=== PATIENT | male | born 1955 | race African-American/Black ===

== ENCOUNTER 2019-02-05 07:32 | Day surgery (SDC) | payer OTHER ==
[2019-02-03 14:04] LABS: Absolute Lymphocytes (CBC) 1.6 K/uL (0.7-4.9); Basophils % 0.6 % (0-1.3); Eosinophils % 5.9 % (0-4.4); Hematocrit 43.2 % (39.6-49.0); Lymphocytes % 23.6 % (15.3-44.8); Monocytes % 8.6 % (3.3-12.3); RBC Red Blood Cell Count 5.21 M/uL (4.33-5.43)
--- NOTE | 2019-02-03 14:08 | RAD REPORT ---
EXAM DESCRIPTION: Mya Maravilla And Kenny (2 Views)02/03/2019 1:35 pm CLINICAL HISTORY: Preop for aortogram with runoff COMPARISON: 2017 FINDINGS: The lungs appear clear of acute infiltrate. The heart is mildly enlarged. Postsurgical changes involve the chest. IMPRESSION: No acute abnormalities displayed
[2019-02-03 14:23] LABS: BUN Blood Urea Nitrogen 16 mg/dL (7-18); Bicarbonate 26 mmol/L (21-32); Glucose Level 162 mg/dL (74-106); Potassium 4.2 mmol/L (3.5-5.1); Sodium Level 138 mmol/L (136-145)
[2019-02-03 17:03] LABS: Protime INR 1.03
--- OUTSIDE RECORDS SUMMARY | 2019-02-05 07:35 | XMS REPORT | Clinical Summary ---
:1955 Author Organization [facility] Address [address] [place] [address] Care Team Providers Name Role Phone Black Montero Primary Care Provider Thien Marshall Unavailable Allergies No Known Allergies Medications Medication Sig Dispensed Refills Start Date End Date Status clopidogrel (PLAVIX) Take 75 mg by 0 Active 75 mg mouth daily. tabletIndications: acute coronary syndrome aspirin 81 MG EC Take 81 mg by 0 Active tablet mouth daily. metoprolol Take 50 mg by 0 Active (LOPRESSOR) 50 MG mouth 2 (two) tabletIndications: times daily. acute coronary syndrome metFORMIN Take 1,000 mg by 0 Active (GLUCOPHAGE) 1000 MG mouth 2 (two) tabletIndications: times daily with type 2 diabetes breakfast and mellitus dinner. canagliflozin Take 100 mg by 0 Active (INVOKANA) 100 mg mouth daily. tablet glipiZIDE (GLUCOTROL Take 2.5 mg by 0 Active XL) 2.5 MG 24 hr mouth 2 (two) tablet times daily. acetaminophen-codeine Take 1 tablet by 30 tablet 0 05/16/2017 Active (TYLENOL #3) 300-30 mouth every 6 mg per tablet (six) hours as needed. Max Daily Amount: 4 tablets atorvastatin Take 1 tablet 30 tablet 0 05/16/2017 05/16/2018 (LIPITOR) 80 MG (80 mg total) by tablet mouth nightly. Active Problems Problem Noted Date Acute blood loss as cause of postoperative anemia 05/10/2017 Acute pulmonary insufficiency following thoracic surgery 05/10/2017 Shock circulatory 05/10/2017 Coronary artery disease 05/09/2017 SIRS (systemic inflammatory response syndrome) 05/09/2017 Social History Tobacco Use Types Packs/Day Years Used Date Never Assessed Sex Assigned at Date Recorded Not on file Job Start Date Occupation Industry Not on file Not on file Not on file Travel History Travel Start Travel End No recent travel history available. Last Filed Vital Signs Not on file Plan of Treatment Not on file Implants Implanted Type Area Community Engagement Leader Device Shelf Model / Identifier Expiration Serial / Date Lot Sut Surg Stl 7 18g 18in Mls Mp [id number] - Sx [place]/Arthroscop N/A: J &J: ETHICON 01/25/2022 [id number] / Implanted: Qty: 6 on 05/09/2017 by Gómez Monteiro MD y Sternum X / [id number] Sternal Zipfix Ndl Strl ..20s - Sna Cardiovascular N/A: SYNTHES: SYNTHE 02/25/2022.001.20S / Implanted: Qty: 1 on 05/09/2017 by Gómez Monteiro MD Sternum S [facility] NA / [id number] Results Not on fileafter 02/04/2018 Insurance Payer Benefit Plan / Group Subscriber ID Type Phone Address [employer] - [employer] HMO POS QPOS xxxxxxxxx HMO/POS (Home) [address] [place] [id number] Advance Directives For more information, please contact:[address] [phone] Code Status Date Activated Date Inactivated Comments Full Code 05/09/2017 7:56 PM 05/16/2017 7:28 PM This code status was determined by: Patient
--- OUTSIDE RECORDS SUMMARY | 2019-02-05 07:37 | XMS REPORT ---
:1955 Author Organization [facility] Address [address] [place] [address] Care Team Providers Name Role Phone AUREA HENLEY Unavailable Unavailable Problems This patient has no known problems. Allergies, Adverse Reactions, Alerts This patient has no known allergies or adverse reactions. Medications This patient has no known medications. Results Test Description Test Time Test Comments Text Results Atomic Results Result Comments POCT-GLUCOSE METER 2017-05-16 11:40:00 Test Item Value Reference Range Comments POC-GLUCOSE METER (BEAKER) (test 170 mg/dL 70-110 TESTED AT [facility] [address] [facility] kzun=[id number]) [facility] [address] CBC W/PLT COUNT & AUTO [id number] 10:01:00 Test Item Value Reference Range Comments WHITE BLOOD CELL COUNT (BEAKER) (test qwvd=813) 11.1 K/ L 3.5-10.5 RED BLOOD CELL COUNT (BEAKER) (test jmct=730) 3.71 M/ L 4.63-6.08 HEMOGLOBIN (BEAKER) (test qgmu=174) 10.5 GM/DL 13.7-17.5 HEMATOCRIT (BEAKER) (test ybld=778) 31.8 % 40.1-51.0 MEAN CORPUSCULAR VOLUME (BEAKER) (test szzj=346) 85.7 fL 79.0-92.2 MEAN CORPUSCULAR HEMOGLOBIN (BEAKER) (test 28.3 pg 25.7-32.2 hzcg=836) MEAN CORPUSCULAR HEMOGLOBIN CONC (BEAKER) (test 33.0 GM/DL 32.3-36.5 amfs=438) RED CELL DISTRIBUTION WIDTH (BEAKER) (test 15.4 % 11.6-14.4 nerm=330) PLATELET COUNT (BEAKER) (test lvcy=218) 351 K/CU MM 150-450 MEAN PLATELET VOLUME (BEAKER) (test tzna=540) 10.9 fL 9.4-12.4 NUCLEATED RED BLOOD CELLS (BEAKER) (test 1 /100 WBC 0-0 ypvg=858) NEUTROPHILS RELATIVE PERCENT (BEAKER) (test 73 % gawz=229) LYMPHOCYTES RELATIVE PERCENT (BEAKER) (test 17 % tjst=560) MONOCYTES RELATIVE PERCENT (BEAKER) (test 8 % xanv=785) EOSINOPHILS RELATIVE PERCENT (BEAKER) (test 1 % kpjk=740) BASOPHILS RELATIVE PERCENT (BEAKER) (test 0 % ubqb=021) NEUTROPHILS ABSOLUTE COUNT (BEAKER) (test 8.06 K/ L 1.78-5.38 rnuu=713) LYMPHOCYTES ABSOLUTE COUNT (BEAKER) (test 1.90 K/ L 1.32-3.57 dqyx=802) MONOCYTES ABSOLUTE COUNT (BEAKER) (test 0.89 K/ L 0.30-0.82 isfc=853) EOSINOPHILS ABSOLUTE COUNT (BEAKER) (test 0.10 K/ L 0.04-0.54 iaqg=183) BASOPHILS ABSOLUTE COUNT (BEAKER) (test 0.03 K/ L 0.01-0.08 hxxi=103) IMMATURE GRANULOCYTES-RELATIVE PERCENT (BEAKER) 1 % 0-1 (test yxpp=1818) (MANUAL DIFFERENTIAL)2017-05-16 10:01:00 Test Item Value Reference Range Comments TOTAL COUNTED (BEAKER) (test sgpf=1222) POCT-GLUCOSE [id number] 07:06:00 Test Item Value Reference Range Comments POC-GLUCOSE METER (BEAKER) 222 mg/dL 70-110 TESTED AT [address] (test pful=6569) [facility] [address] BASIC METABOLIC [id number] 05:44:00 Test Item Value Reference Range Comments SODIUM (BEAKER) (test 140 meq/L 136-145 hurf=493) POTASSIUM (BEAKER) (test 3.6 meq/L 3.5-5.1 kini=689) CHLORIDE (BEAKER) (test 104 meq/L 98-107 jqxt=421) CO2 (BEAKER) (test 26 meq/L 22-29 izgz=627) BLOOD UREA NITROGEN 11 mg/dL 7-21 (BEAKER) (test dblc=579) CREATININE (BEAKER) (test 0.67 mg/dL 0.57-1.25 wicr=305) GLUCOSE RANDOM (BEAKER) 123 mg/dL 70-105 (test duxr=468) CALCIUM (BEAKER) (test 8.9 mg/dL 8.4-10.2 kuxr=188) EGFR (BEAKER) (test 145 mL/min/1.73 sq m ESTIMATED GFR IS NOT ayww=5791) ACCURATE CREATININE CLEARANCE IN PREDICTING GLOMERULAR FILTRATION RATE. ESTIMATED GFR IS NOT APPLICABLE FOR DIALYSIS PATIENTS. POCT-GLUCOSE [id number] 21:00:00 Test Item Value Reference Range Comments POC-GLUCOSE METER (BEAKER) 169 mg/dL 70-110 TESTED AT [address] (test ebns=5652) [place] [id number] POCT-GLUCOSE [id number] 17:49:00 Test Item Value Reference Range Comments POC-GLUCOSE METER (BEAKER) 207 mg/dL 70-110 TESTED AT [address] (test ltww=1696) [place] [id number] POCT-GLUCOSE [id number] 13:46:00 Test Item Value Reference Range Comments POC-GLUCOSE METER (BEAKER) 182 mg/dL 70-110 TESTED AT [address] (test rvvp=0226) [place] [id number] POCT-GLUCOSE [id number] 07:45:00 Test Item Value Reference Range Comments POC-GLUCOSE METER (BEAKER) 133 mg/dL 70-110 TESTED AT [address] (test tceb=3783) [facility] [address] BASIC METABOLIC [id number] 05:26:00 Test Item Value Reference Range Comments SODIUM (BEAKER) (test 140 meq/L 136-145 dbyz=457) POTASSIUM (BEAKER) (test 3.3 meq/L 3.5-5.1 qmds=295) CHLORIDE (BEAKER) (test 106 meq/L 98-107 pjad=483) CO2 (BEAKER) (test 25 meq/L 22-29 qxhc=020) BLOOD UREA NITROGEN 12 mg/dL 7-21 (BEAKER) (test bypb=445) CREATININE (BEAKER) (test 0.67 mg/dL 0.57-1.25 ucbc=050) GLUCOSE RANDOM (BEAKER) 129 mg/dL 70-105 (test sdar=975) CALCIUM (BEAKER) (test 8.6 mg/dL 8.4-10.2 qsds=590) EGFR (BEAKER) (test 145 mL/min/1.73 sq m ESTIMATED GFR IS NOT thvt=4051) ACCURATE CREATININE CLEARANCE IN PREDICTING GLOMERULAR FILTRATION RATE. ESTIMATED GFR IS NOT APPLICABLE FOR DIALYSIS PATIENTS. CBC W/PLT COUNT & AUTO [id number] 05:07:00 Test Item Value Reference Range Comments WHITE BLOOD CELL COUNT (BEAKER) (test ehlm=919) 10.2 K/ L 3.5-10.5 RED BLOOD CELL COUNT (BEAKER) (test pfuv=154) 3.35 M/ L 4.63-6.08 HEMOGLOBIN (BEAKER) (test ccyw=656) 9.5 GM/DL 13.7-17.5 HEMATOCRIT (BEAKER) (test ctuc=681) 28.5 % 40.1-51.0 MEAN CORPUSCULAR VOLUME (BEAKER) (test qldo=506) 85.1 fL 79.0-92.2 MEAN CORPUSCULAR HEMOGLOBIN (BEAKER) (test 28.4 pg 25.7-32.2 wird=488) MEAN CORPUSCULAR HEMOGLOBIN CONC (BEAKER) (test 33.3 GM/DL 32.3-36.5 leld=551) RED CELL DISTRIBUTION WIDTH (BEAKER) (test 15.2 % 11.6-14.4 jlgx=842) PLATELET COUNT (BEAKER) (test xcqj=047) 270 K/CU MM 150-450 MEAN PLATELET VOLUME (BEAKER) (test rfrs=246) 10.8 fL 9.4-12.4 NUCLEATED RED BLOOD CELLS (BEAKER) (test 0 /100 WBC 0-0 hzro=543) NEUTROPHILS RELATIVE PERCENT (BEAKER) (test 69 % unzz=526) LYMPHOCYTES RELATIVE PERCENT (BEAKER) (test 20 % cbkr=299) MONOCYTES RELATIVE PERCENT (BEAKER) (test 9 % woxd=999) EOSINOPHILS RELATIVE PERCENT (BEAKER) (test 1 % vbni=449) BASOPHILS RELATIVE PERCENT (BEAKER) (test 0 % fhge=028) NEUTROPHILS ABSOLUTE COUNT (BEAKER) (test 7.03 K/ L 1.78-5.38 nybr=320) LYMPHOCYTES ABSOLUTE COUNT (BEAKER) (test 2.06 K/ L 1.32-3.57 ygfn=636) MONOCYTES ABSOLUTE COUNT (BEAKER) (test 0.87 K/ L 0.30-0.82 ubef=152) EOSINOPHILS ABSOLUTE COUNT (BEAKER) (test 0.10 K/ L 0.04-0.54 xewe=340) BASOPHILS ABSOLUTE COUNT (BEAKER) (test 0.02 K/ L 0.01-0.08 jubk=297) IMMATURE GRANULOCYTES-RELATIVE PERCENT (BEAKER) 1 % 0-1 (test zurx=7467) POCT-GLUCOSE [id number] 21:19:00 Test Item Value Reference Range Comments POC-GLUCOSE METER (BEAKER) 190 mg/dL 70-110 TESTED AT [address] (test fwcw=2938) [place] [id number] POCT-GLUCOSE [id number] 12:12:00 Test Item Value Reference Range Comments POC-GLUCOSE METER (BEAKER) 205 mg/dL 70-110 TESTED AT [address] (test ruxd=5440) [place] [id number] POCT-GLUCOSE [id number] 08:17:00 Test Item Value Reference Range Comments POC-GLUCOSE METER (BEAKER) 169 mg/dL 70-110 TESTED AT [address] (test pbyq=9536) [facility] [address] BASIC METABOLIC [id number] 06:03:00 Test Item Value Reference Range Comments SODIUM (BEAKER) (test 140 meq/L 136-145 xwlo=697) POTASSIUM (BEAKER) (test 3.0 meq/L 3.5-5.1 tqti=484) CHLORIDE (BEAKER) (test 106 meq/L 98-107 nats=117) CO2 (BEAKER) (test 25 meq/L 22-29 zanc=508) BLOOD UREA NITROGEN 16 mg/dL 7-21 (BEAKER) (test avbd=041) CREATININE (BEAKER) (test 0.71 mg/dL 0.57-1.25 qbkl=688) GLUCOSE RANDOM (BEAKER) 246 mg/dL 70-105 (test mdkz=767) CALCIUM (BEAKER) (test 8.6 mg/dL 8.4-10.2 xliy=979) EGFR (BEAKER) (test 136 mL/min/1.73 sq m ESTIMATED GFR IS NOT xerx=8312) ACCURATE CREATININE CLEARANCE IN PREDICTING GLOMERULAR FILTRATION RATE. ESTIMATED GFR IS NOT APPLICABLE FOR DIALYSIS PATIENTS. CBC W/PLT COUNT & AUTO [id number] 05:43:00 Test Item Value Reference Range Comments WHITE BLOOD CELL COUNT (BEAKER) (test euoy=285) 10.1 K/ L 3.5-10.5 RED BLOOD CELL COUNT (BEAKER) (test yman=235) 3.61 M/ L 4.63-6.08 HEMOGLOBIN (BEAKER) (test ukvg=820) 10.1 GM/DL 13.7-17.5 HEMATOCRIT (BEAKER) (test zyry=225) 30.4 % 40.1-51.0 MEAN CORPUSCULAR VOLUME (BEAKER) (test vouc=869) 84.2 fL 79.0-92.2 MEAN CORPUSCULAR HEMOGLOBIN (BEAKER) (test 28.0 pg 25.7-32.2 tmbn=778) MEAN CORPUSCULAR HEMOGLOBIN CONC (BEAKER) (test 33.2 GM/DL 32.3-36.5 ayjy=243) RED CELL DISTRIBUTION WIDTH (BEAKER) (test 15.1 % 11.6-14.4 caxt=446) PLATELET COUNT (BEAKER) (test lllk=520) 287 K/CU MM 150-450 MEAN PLATELET VOLUME (BEAKER) (test fnmx=379) 11.4 fL 9.4-12.4 NUCLEATED RED BLOOD CELLS (BEAKER) (test 0 /100 WBC 0-0 rvvx=109) NEUTROPHILS RELATIVE PERCENT (BEAKER) (test 73 % swwe=938) LYMPHOCYTES RELATIVE PERCENT (BEAKER) (test 16 % hszz=336) MONOCYTES RELATIVE PERCENT (BEAKER) (test 10 % uzoi=472) EOSINOPHILS RELATIVE PERCENT (BEAKER) (test 1 % aely=474) BASOPHILS RELATIVE PERCENT (BEAKER) (test 0 % zkqu=462) NEUTROPHILS ABSOLUTE COUNT (BEAKER) (test 7.39 K/ L 1.78-5.38 kbao=711) LYMPHOCYTES ABSOLUTE COUNT (BEAKER) (test 1.57 K/ L 1.32-3.57 jnah=969) MONOCYTES ABSOLUTE COUNT (BEAKER) (test 1.02 K/ L 0.30-0.82 pvxv=021) EOSINOPHILS ABSOLUTE COUNT (BEAKER) (test 0.07 K/ L 0.04-0.54 kevl=776) BASOPHILS ABSOLUTE COUNT (BEAKER) (test 0.03 K/ L 0.01-0.08 ocjc=135) IMMATURE GRANULOCYTES-RELATIVE PERCENT (BEAKER) 1 % 0-1 (test qmyq=5766) POCT-GLUCOSE [id number] 21:35:00 Test Item Value Reference Range Comments POC-GLUCOSE METER (BEAKER) 189 mg/dL 70-110 TESTED AT [address] (test tzhh=5065) [place] [address] POCT-GLUCOSE [id number] 18:09:00 Test Item Value Reference Range Comments POC-GLUCOSE METER (BEAKER) 201 mg/dL 70-110 TESTED AT [address] (test oqbd=6442) [place] [address] RAD, CHEST, 1 VIEW, NON [id number] 14:44:00Reason for exam:->pl effusionShould this be performed at the bedside?->YesFINAL REPORT AP chest. HISTORY: Pleural effusion COMPARISON: 05/12/2017 IMPRESSION:Cardiomegaly unchanged. Left thoracostomy tube removed. No pneumothorax. Perihilar atelectasis noted. No significant edema. Signed: Tiffanie Macias MDReport Verified Date/Time: 05/13/2017 14:44:21 Reading Location: [facility] Reading Room POCT-GLUCOSE [id number] 13:30:00 Test Item Value Reference Range Comments POC-GLUCOSE METER (BEAKER) 195 mg/dL 70-110 TESTED AT [address] (test wfbx=2399) [place] [id number] POCT-GLUCOSE [id number] 08:36:00 Test Item Value Reference Range Comments POC-GLUCOSE METER (BEAKER) 157 mg/dL 70-110 TESTED AT [address] (test mkue=8690) [place] [address] BASIC METABOLIC [id number] 07:24:00 Test Item Value Reference Range Comments SODIUM (BEAKER) (test 141 meq/L 136-145 scbc=904) POTASSIUM (BEAKER) (test 3.5 meq/L 3.5-5.1 bwet=560) CHLORIDE (BEAKER) (test 107 meq/L 98-107 lgew=691) CO2 (BEAKER) (test 24 meq/L 22-29 hvdj=045) BLOOD UREA NITROGEN 16 mg/dL 7-21 (BEAKER) (test cnla=790) CREATININE (BEAKER) (test 0.70 mg/dL 0.57-1.25 eybp=984) GLUCOSE RANDOM (BEAKER) 145 mg/dL 70-105 (test capv=364) CALCIUM (BEAKER) (test 8.8 mg/dL 8.4-10.2 qfyw=509) EGFR (BEAKER) (test 138 mL/min/1.73 sq m ESTIMATED GFR IS NOT uuvk=9560) ACCURATE CREATININE CLEARANCE IN PREDICTING GLOMERULAR FILTRATION RATE. ESTIMATED GFR IS NOT APPLICABLE FOR DIALYSIS PATIENTS. CBC W/PLT COUNT & AUTO [id number] 06:06:00 Test Item Value Reference Range Comments WHITE BLOOD CELL COUNT (BEAKER) (test uccl=282) 13.8 K/ L 3.5-10.5 RED BLOOD CELL COUNT (BEAKER) (test nmto=562) 4.04 M/ L 4.63-6.08 HEMOGLOBIN (BEAKER) (test iamc=469) 11.0 GM/DL 13.7-17.5 HEMATOCRIT (BEAKER) (test mkdp=900) 33.9 % 40.1-51.0 MEAN CORPUSCULAR VOLUME (BEAKER) (test butc=127) 83.9 fL 79.0-92.2 MEAN CORPUSCULAR HEMOGLOBIN (BEAKER) (test 27.2 pg 25.7-32.2 fihr=107) MEAN CORPUSCULAR HEMOGLOBIN CONC (BEAKER) (test 32.4 GM/DL 32.3-36.5 jaer=514) RED CELL DISTRIBUTION WIDTH (BEAKER) (test 15.4 % 11.6-14.4 khfi=121) PLATELET COUNT (BEAKER) (test uzmy=470) 264 K/CU MM 150-450 MEAN PLATELET VOLUME (BEAKER) (test jjjo=437) 11.4 fL 9.4-12.4 NUCLEATED RED BLOOD CELLS (BEAKER) (test 0 /100 WBC 0-0 evhx=644) NEUTROPHILS RELATIVE PERCENT (BEAKER) (test 79 % pwgp=118) LYMPHOCYTES RELATIVE PERCENT (BEAKER) (test 11 % vapt=090) MONOCYTES RELATIVE PERCENT (BEAKER) (test 9 % dkjt=461) EOSINOPHILS RELATIVE PERCENT (BEAKER) (test 0 % hpln=214) BASOPHILS RELATIVE PERCENT (BEAKER) (test 0 % pqdr=421) NEUTROPHILS ABSOLUTE COUNT (BEAKER) (test 10.91 K/ L 1.78-5.38 ghwh=606) LYMPHOCYTES ABSOLUTE COUNT (BEAKER) (test 1.46 K/ L 1.32-3.57 vsxb=430) MONOCYTES ABSOLUTE COUNT (BEAKER) (test 1.28 K/ L 0.30-0.82 lknz=939) EOSINOPHILS ABSOLUTE COUNT (BEAKER) (test 0.02 K/ L 0.04-0.54 gmrm=527) BASOPHILS ABSOLUTE COUNT (BEAKER) (test 0.02 K/ L 0.01-0.08 klvt=348) IMMATURE GRANULOCYTES-RELATIVE PERCENT (BEAKER) 1 % 0-1 (test ivoy=9661) POCT-GLUCOSE [id number] 20:52:00 Test Item Value Reference Range Comments POC-GLUCOSE METER (BEAKER) 226 mg/dL 70-110 TESTED AT [address] (test kgiz=6009) [place] [address] POCT-GLUCOSE [id number] 17:35:00 Test Item Value Reference Range Comments POC-GLUCOSE METER (BEAKER) 200 mg/dL 70-110 TESTED AT [address] (test gzxo=9060) [place] [address] POCT-GLUCOSE [id number] 12:04:00 Test Item Value Reference Range Comments POC-GLUCOSE METER (BEAKER) 177 mg/dL 70-110 TESTED AT [address] (test uzdd=0929) [place] [address] RAD, CHEST, 1 VIEW, NON [id number] 11:53:00Reason for exam:->post opShould this be performed at the bedside?->YesFINAL REPORT AP chest HISTORY: Postoperative COMPARISON: 05/10/2017 IMPRESSION: Endotracheal tube removed. Pleural and mediastinal drains present. Stable cardiac silhouette enlargement. Mild interstitial edema, slightly increased from previous. No large effusion. No pneumothorax appreciated. Signed: Tiffanie Macias MDReport Verified Date/Time: 05/12/2017 11:53:35 Reading Location: [address] Transitional Reading Room Electronically signed by: TIFFANIE MACIAS M.D. on05/12/2017 11:53 AMPOCT-GLUCOSE [id number] 08:29:00 Test Item Value Reference Range Comments POC-GLUCOSE METER (BEAKER) 204 mg/dL 70-110 TESTED AT [facility] [address] (test nttw=3358) [place] [address] CBC W/PLT COUNT & AUTO [id number] 06:31:00 Test Item Value Reference Range Comments WHITE BLOOD CELL COUNT (BEAKER) (test lmth=926) 18.2 K/ L 3.5-10.5 RED BLOOD CELL COUNT (BEAKER) (test garl=841) 3.76 M/ L 4.63-6.08 HEMOGLOBIN (BEAKER) (test kska=684) 10.5 GM/DL 13.7-17.5 HEMATOCRIT (BEAKER) (test rcls=392) 32.0 % 40.1-51.0 MEAN CORPUSCULAR VOLUME (BEAKER) (test aoqz=277) 85.1 fL 79.0-92.2 MEAN CORPUSCULAR HEMOGLOBIN (BEAKER) (test 27.9 pg 25.7-32.2 enoq=888) MEAN CORPUSCULAR HEMOGLOBIN CONC (BEAKER) (test 32.8 GM/DL 32.3-36.5 inlc=379) RED CELL DISTRIBUTION WIDTH (BEAKER) (test 15.5 % 11.6-14.4 wuww=130) PLATELET COUNT (BEAKER) (test ujwo=094) 208 K/CU MM 150-450 MEAN PLATELET VOLUME (BEAKER) (test atsm=157) 11.8 fL 9.4-12.4 NUCLEATED RED BLOOD CELLS (BEAKER) (test 0 /100 WBC 0-0 hrpl=734) NEUTROPHILS RELATIVE PERCENT (BEAKER) (test 83 % oujr=815) LYMPHOCYTES RELATIVE PERCENT (BEAKER) (test 7 % qlyl=348) MONOCYTES RELATIVE PERCENT (BEAKER) (test 9 % wzkd=215) EOSINOPHILS RELATIVE PERCENT (BEAKER) (test 0 % rzvq=389) BASOPHILS RELATIVE PERCENT (BEAKER) (test 0 % xxub=498) NEUTROPHILS ABSOLUTE COUNT (BEAKER) (test 15.08 K/ L 1.78-5.38 quod=779) LYMPHOCYTES ABSOLUTE COUNT (BEAKER) (test 1.26 K/ L 1.32-3.57 vnzr=659) MONOCYTES ABSOLUTE COUNT (BEAKER) (test 1.66 K/ L 0.30-0.82 aqkb=815) EOSINOPHILS ABSOLUTE COUNT (BEAKER) (test 0.00 K/ L 0.04-0.54 socu=315) BASOPHILS ABSOLUTE COUNT (BEAKER) (test 0.02 K/ L 0.01-0.08 avtd=236) IMMATURE GRANULOCYTES-RELATIVE PERCENT (BEAKER) 1 % 0-1 (test lbuq=3382) BASIC METABOLIC [id number] 06:25:00 Test Item Value Reference Range Comments SODIUM (BEAKER) (test 140 meq/L 136-145 vhkz=868) POTASSIUM (BEAKER) (test 4.1 meq/L 3.5-5.1 lbxx=881) CHLORIDE (BEAKER) (test 106 meq/L 98-107 mkoi=877) CO2 (BEAKER) (test 14 meq/L 22-29 upcw=471) BLOOD UREA NITROGEN 14 mg/dL 7-21 (BEAKER) (test xbek=727) CREATININE (BEAKER) (test 0.67 mg/dL 0.57-1.25 fmsn=952) GLUCOSE RANDOM (BEAKER) 128 mg/dL 70-105 (test kics=972) CALCIUM (BEAKER) (test 7.4 mg/dL 8.4-10.2 ntgt=906) EGFR (BEAKER) (test 145 mL/min/1.73 sq m ESTIMATED GFR IS NOT hogr=6734) ACCURATE CREATININE CLEARANCE IN PREDICTING GLOMERULAR FILTRATION RATE. ESTIMATED GFR IS NOT APPLICABLE FOR DIALYSIS PATIENTS. Check Serum Magnesium level 2 hours after IV magnesium replacement.[id number] 06:18:00 Test Item Value Reference Range Comments MAGNESIUM (BEAKER) (test irsv=271) 2.1 mg/dL 1.6-2.6 Check Serum Magnesium level 2 hours after IV magnesium replacement.U/S, EXTREMITY (NON-VASCULAR), LEFT, [id number] 00:39:00Patient has developed localized hard swelling with sever pain in his left thigh. We need uss examination to exclude hematoma formationReason for exam:->Swelling left thighFINAL REPORT Limited ultrasound of the left thigh demonstrates a 7.3 x 1.7 x 2.5 cm complex collection within the medial left thigh soft tissues. Although the findings are nonspecific, hematoma is favored. Signed: Eddy Hoopereport Verified Date/Time: 05/12/2017 00:39:45 Reading Location: [facility] [id number] Transitional Reading Room POCT-GLUCOSE [id number] 20:41:00 Test Item Value Reference Range Comments POC-GLUCOSE METER (BEAKER) 223 mg/dL 70-110 TESTED AT [address] (test nmys=0303) [facility] [address] POCT-GLUCOSE [id number] 16:59:00 Test Item Value Reference Range Comments POC-GLUCOSE METER (BEAKER) 221 mg/dL 70-110 TESTED AT [address] (test bzpf=6586) [facility] [address] POCT-GLUCOSE [id number] 12:09:00 Test Item Value Reference Range Comments POC-GLUCOSE METER (BEAKER) 176 mg/dL 70-110 TESTED AT [address] (test yvou=8489) [facility] [address] BASIC METABOLIC [id number] 06:39:00 Test Item Value Reference Range Comments SODIUM (BEAKER) (test 141 meq/L 136-145 jvmz=107) POTASSIUM (BEAKER) (test 4.1 meq/L 3.5-5.1 dduo=019) CHLORIDE (BEAKER) (test 104 meq/L 98-107 tdpn=925) CO2 (BEAKER) (test 13 meq/L 22-29 uxtw=453) BLOOD UREA NITROGEN 8 mg/dL 7-21 (BEAKER) (test wvpo=440) CREATININE (BEAKER) (test 0.53 mg/dL 0.57-1.25 blci=583) GLUCOSE RANDOM (BEAKER) 96 mg/dL 70-105 (test ozjb=478) CALCIUM (BEAKER) (test 6.3 mg/dL 8.4-10.2 jqpv=808) EGFR (BEAKER) (test 190 mL/min/1.73 sq m ESTIMATED GFR IS NOT tywr=7983) ACCURATE CREATININE CLEARANCE IN PREDICTING GLOMERULAR FILTRATION RATE. ESTIMATED GFR IS NOT APPLICABLE FOR DIALYSIS PATIENTS. Check Serum Magnesium level 2 hours after IV magnesium replacement.[id number] 06:37:00 Test Item Value Reference Range Comments MAGNESIUM (BEAKER) (test vrrc=507) 2.2 mg/dL 1.6-2.6 Check Serum Magnesium level 2 hours after IV magnesium replacement.CBC W/PLT COUNT & AUTO [id number] 06:03:00 Test Item Value Reference Range Comments WHITE BLOOD CELL COUNT (BEAKER) (test heje=701) 14.2 K/ L 3.5-10.5 RED BLOOD CELL COUNT (BEAKER) (test nzvx=552) 3.44 M/ L 4.63-6.08 HEMOGLOBIN (BEAKER) (test fxue=941) 9.7 GM/DL 13.7-17.5 HEMATOCRIT (BEAKER) (test tjsm=735) 29.7 % 40.1-51.0 MEAN CORPUSCULAR VOLUME (BEAKER) (test rtzz=361) 86.3 fL 79.0-92.2 MEAN CORPUSCULAR HEMOGLOBIN (BEAKER) (test 28.2 pg 25.7-32.2 furh=509) MEAN CORPUSCULAR HEMOGLOBIN CONC (BEAKER) (test 32.7 GM/DL 32.3-36.5 rfxj=198) RED CELL DISTRIBUTION WIDTH (BEAKER) (test 15.8 % 11.6-14.4 rlrs=637) PLATELET COUNT (BEAKER) (test espj=081) 185 K/CU MM 150-450 MEAN PLATELET VOLUME (BEAKER) (test cpbm=227) 11.5 fL 9.4-12.4 NUCLEATED RED BLOOD CELLS (BEAKER) (test 0 /100 WBC 0-0 cpnm=190) NEUTROPHILS RELATIVE PERCENT (BEAKER) (test 86 % jjqn=540) LYMPHOCYTES RELATIVE PERCENT (BEAKER) (test 6 % valf=303) MONOCYTES RELATIVE PERCENT (BEAKER) (test 8 % zlix=173) EOSINOPHILS RELATIVE PERCENT (BEAKER) (test 0 % ncon=335) BASOPHILS RELATIVE PERCENT (BEAKER) (test 0 % giiy=907) NEUTROPHILS ABSOLUTE COUNT (BEAKER) (test 12.14 K/ L 1.78-5.38 cmev=043) LYMPHOCYTES ABSOLUTE COUNT (BEAKER) (test 0.82 K/ L 1.32-3.57 kcbs=341) MONOCYTES ABSOLUTE COUNT (BEAKER) (test 1.15 K/ L 0.30-0.82 kgyy=303) EOSINOPHILS ABSOLUTE COUNT (BEAKER) (test 0.01 K/ L 0.04-0.54 quwy=702) BASOPHILS ABSOLUTE COUNT (BEAKER) (test 0.01 K/ L 0.01-0.08 zbcg=865) IMMATURE GRANULOCYTES-RELATIVE PERCENT (BEAKER) 0 % 0-1 (test cxni=3018) POCT-GLUCOSE [id number] 02:28:00 Test Item Value Reference Range Comments POC-GLUCOSE METER (BEAKER) 85 mg/dL 70-110 TESTED AT [facility] [address] [facility] (test gflw=6392) [facility] [id number] CBC W/PLT COUNT & AUTO [id number] 15:23:00 Test Item Value Reference Range Comments WHITE BLOOD CELL COUNT (BEAKER) (test sziw=080) 12.4 K/ L 3.5-10.5 RED BLOOD CELL COUNT (BEAKER) (test uxwq=894) 3.80 M/ L 4.63-6.08 HEMOGLOBIN (BEAKER) (test tcuv=407) 10.6 GM/DL 13.7-17.5 HEMATOCRIT (BEAKER) (test drvz=543) 32.1 % 40.1-51.0 MEAN CORPUSCULAR VOLUME (BEAKER) (test qljb=140) 84.5 fL 79.0-92.2 MEAN CORPUSCULAR HEMOGLOBIN (BEAKER) (test 27.9 pg 25.7-32.2 xdkb=904) MEAN CORPUSCULAR HEMOGLOBIN CONC (BEAKER) (test 33.0 GM/DL 32.3-36.5 ytlu=133) RED CELL DISTRIBUTION WIDTH (BEAKER) (test 15.5 % 11.6-14.4 atzx=718) PLATELET COUNT (BEAKER) (test rnxw=456) 214 K/CU MM 150-450 MEAN PLATELET VOLUME (BEAKER) (test wpix=247) 10.9 fL 9.4-12.4 NUCLEATED RED BLOOD CELLS (BEAKER) (test 0 /100 WBC 0-0 kvvq=912) NEUTROPHILS RELATIVE PERCENT (BEAKER) (test 86 % ejvl=599) LYMPHOCYTES RELATIVE PERCENT (BEAKER) (test 5 % uajb=064) MONOCYTES RELATIVE PERCENT (BEAKER) (test 9 % uawk=641) EOSINOPHILS RELATIVE PERCENT (BEAKER) (test 0 % cjmg=950) BASOPHILS RELATIVE PERCENT (BEAKER) (test 0 % eijs=051) NEUTROPHILS ABSOLUTE COUNT (BEAKER) (test 10.72 K/ L 1.78-5.38 heal=475) LYMPHOCYTES ABSOLUTE COUNT (BEAKER) (test 0.58 K/ L 1.32-3.57 vycj=430) MONOCYTES ABSOLUTE COUNT (BEAKER) (test 1.07 K/ L 0.30-0.82 qnsy=165) EOSINOPHILS ABSOLUTE COUNT (BEAKER) (test 0.00 K/ L 0.04-0.54 ypml=349) BASOPHILS ABSOLUTE COUNT (BEAKER) (test 0.01 K/ L 0.01-0.08 fytr=637) IMMATURE GRANULOCYTES-RELATIVE PERCENT (BEAKER) 0 % 0-1 (test sgux=9441) POCT-GLUCOSE [id number] 12:00:00 Test Item Value Reference Range Comments POC-GLUCOSE METER (BEAKER) 131 mg/dL 70-110 TESTED AT [address] (test cjyk=9597) [place] [id number] [id number] 10:49:00 Test Item Value Reference Range Comments PARTIAL THROMBOPLASTIN TIME (BEAKER) (test 24.3 seconds 22.5-36.0 pjlv=291) [id number] 10:49:00 Test Item Value Reference Range Comments FIBRINOGEN LEVEL (BEAKER) (test bpst=587) 363 mg/dl 225-434 PROTHROMBIN [id number] 10:48:00 Test Item Value Reference Range Comments PROTIME (BEAKER) (test ikhd=623) 16.0 seconds 11.7-14.7 INR (BEAKER) (test uxhr=123) 1.3 <=5.9 RECOMMENDED COUMADIN/WARFARIN INR THERAPY RANGESSTANDARD DOSE: 2.0 - 3.0 Includes: PROPHYLAXIS forvenous thrombosis, systemic embolization; TREATMENT for venous thrombosis and/or pulmonary embolus.HIGH RISK: Target INR is 2.5-3.5 for patients with mechanical heart valves.POCT-GLUCOSE [id number] 10:44:00 Test Item Value Reference Range Comments POC-GLUCOSE METER (BEAKER) 121 mg/dL 70-110 TESTED AT [address] (test soqn=6389) [place] [address] POCT-GLUCOSE [id number] 10:44:00 Test Item Value Reference Range Comments POC-GLUCOSE METER (BEAKER) 123 mg/dL 70-110 TESTED AT [address] (test wtky=7661) [facility] [address] BLOOD GAS, [id number] 10:30:00 Test Item Value Reference Range Comments PH ARTERIAL (BEAKER) (test vjej=551) 7.47 7.35-7.45 PCO2 ARTERIAL (BEAKER) (test ongk=082) 33 mmHg 35-45 PO2 ARTERIAL (BEAKER) (test ylyo=732) 93 mmHg 80-90 O2 SATURATION ARTERIAL (BEAKER) (test zbqy=858) 97.4 % 96.0-97.0 HCO3 ARTERIAL (BEAKER) (test afmr=660) 23 mmol/L 21-29 BASE EXCESS ARTERIAL (BEAKER) (test ftxe=366) 0.0 mmol/L -2.0-3.0 PATIENT TEMPERATURE (BEAKER) (test zvmo=7058) 37.5 C FIO2 (BEAKER) (test moij=0387) 40.0 % POCT-GLUCOSE [id number] 06:34:00 Test Item Value Reference Range Comments POC-GLUCOSE METER (BEAKER) 123 mg/dL 70-110 TESTED AT [address] (test deho=0362) [place] [id number] POCT-GLUCOSE [id number] 05:29:00 Test Item Value Reference Range Comments POC-GLUCOSE METER (BEAKER) 157 mg/dL 70-110 TESTED AT [address] (test tekc=2735) [place] [id number] POCT-GLUCOSE [id number] 05:29:00 Test Item Value Reference Range Comments POC-GLUCOSE METER (BEAKER) 187 mg/dL 70-110 TESTED AT [address] (test gvcp=0941) [place] [id number] RAD, CHEST, 1 VIEW, NON [id number] 05:29:00while patient is intubated or has chest tubes.Reason for exam:->s/p ACBShould this be performed at the bedside?->YesFINAL REPORT Comparison exam: 2016 No pneumothorax, focal pulmonary consolidation, or significant pleural effusion. Stable cardiomediastinal contours. Appropriate position of the support hardware. Signed: Eddy Hoopereport Verified Date/Time: 05/10 05:29:24 Reading Location: [facility] B1 C013X Ortho Consult Reading Room SODIUM NA- STAT [id number] 05:20:00 Test Item Value Reference Range Comments SODIUM (BEAKER) (test ucup=976) 140 meq/L 135-148 POTASSIUM-STAT [id number] 05:20:00 Test Item Value Reference Range Comments POTASSIUM (BEAKER) (test negi=283) 4.1 meq/L 3.6-5.5 BLOOD GAS, [id number] 05:20:00 Test Item Value Reference Range Comments PH ARTERIAL (BEAKER) (test yalh=814) 7.43 7.35-7.45 PCO2 ARTERIAL (BEAKER) (test ojxu=053) 36 mmHg 35-45 PO2 ARTERIAL (BEAKER) (test dody=150) 93 mmHg 80-90 O2 SATURATION ARTERIAL (BEAKER) (test rqus=340) 97.3 % 96.0-97.0 HCO3 ARTERIAL (BEAKER) (test skmf=480) 24 mmol/L 21-29 BASE EXCESS ARTERIAL (BEAKER) (test dgfa=122) -0.3 mmol/L -2.0-3.0 PATIENT TEMPERATURE (BEAKER) (test inup=5242) 37.0 C FIO2 (BEAKER) (test mfeh=8088) 60.0 % GLUCOSE-STAT [id number] 05:20:00 Test Item Value Reference Range Comments GLUCOSE RANDOM (BEAKER) (test urxy=081) 145 mg/dL 70-110 HGB/HCT (H&H) - STAT [id number] 05:20:00 Test Item Value Reference Range Comments HEMOGLOBIN (BEAKER) (test ggwn=457) 9.6 g/dL 13.0-16.8 HEMATOCRIT (BEAKER) (test ixub=885) 28.0 % 40.0-50.0 [id number] 04:16:00 Test Item Value Reference Range Comments MAGNESIUM (BEAKER) (test kksr=609) 2.1 mg/dL 1.6-2.6 BASIC METABOLIC [id number] 04:16:00 Test Item Value Reference Range Comments SODIUM (BEAKER) (test 142 meq/L 136-145 qonl=831) POTASSIUM (BEAKER) (test 4.2 meq/L 3.5-5.1 folb=858) CHLORIDE (BEAKER) (test 112 meq/L 98-107 orem=824) CO2 (BEAKER) (test 21 meq/L 22-29 bmbl=252) BLOOD UREA NITROGEN 9 mg/dL 7-21 (BEAKER) (test bivc=662) CREATININE (BEAKER) (test 0.77 mg/dL 0.57-1.25 peow=056) GLUCOSE RANDOM (BEAKER) 170 mg/dL 70-105 (test cbnd=126) CALCIUM (BEAKER) (test 8.0 mg/dL 8.4-10.2 jqqu=069) EGFR (BEAKER) (test 124 mL/min/1.73 sq m ESTIMATED GFR IS NOT yyft=4270) ACCURATE CREATININE CLEARANCE IN PREDICTING GLOMERULAR FILTRATION RATE. ESTIMATED GFR IS NOT APPLICABLE FOR DIALYSIS PATIENTS. CALCIUM, [id number] 04:08:00 Test Item Value Reference Range Comments CALCIUM IONIZED (BEAKER) (test wphm=374) 1.09 mmol/L 1.12-1.27 PH, BLOOD (BEAKER) (test myxr=5610) 7.42 LACTIC ACID, ARTERIAL, WHOLE [id number] 04:01:00 Test Item Value Reference Range Comments LACTATE BLOOD ARTERIAL (2) (BEAKER) (test 1.9 mmol/L 0.5-2.2 cgrw=1027) Effective 11/30/2015: Units/Reference Range ChangeNew: 0.5-2.2 mmol/L Previous: 5 -20 mg/dLOXYGEN SATURATION, [id number] 03:59:00 Test Item Value Reference Range Comments O2 SATURATION (MEASURED) (BEAKER) (test xvyc=2055) 69.6 % CBC W/PLT COUNT & AUTO [id number] 03:54:00 Test Item Value Reference Range Comments WHITE BLOOD CELL COUNT (BEAKER) (test emyw=046) 9.6 K/ L 3.5-10.5 RED BLOOD CELL COUNT (BEAKER) (test nnom=849) 2.84 M/ L 4.63-6.08 HEMOGLOBIN (BEAKER) (test zvfm=368) 8.1 GM/DL 13.7-17.5 HEMATOCRIT (BEAKER) (test ifyg=306) 24.5 % 40.1-51.0 MEAN CORPUSCULAR VOLUME (BEAKER) (test kbol=321) 86.3 fL 79.0-92.2 MEAN CORPUSCULAR HEMOGLOBIN (BEAKER) (test 28.5 pg 25.7-32.2 zolh=315) MEAN CORPUSCULAR HEMOGLOBIN CONC (BEAKER) (test 33.1 GM/DL 32.3-36.5 nrai=619) RED CELL DISTRIBUTION WIDTH (BEAKER) (test 15.0 % 11.6-14.4 uudo=016) PLATELET COUNT (BEAKER) (test fvvn=082) 196 K/CU MM 150-450 MEAN PLATELET VOLUME (BEAKER) (test oach=919) 11.2 fL 9.4-12.4 NUCLEATED RED BLOOD CELLS (BEAKER) (test 0 /100 WBC 0-0 pxwr=495) NEUTROPHILS RELATIVE PERCENT (BEAKER) (test 86 % rwaq=944) LYMPHOCYTES RELATIVE PERCENT (BEAKER) (test 6 % vpgv=114) MONOCYTES RELATIVE PERCENT (BEAKER) (test 8 % rycn=313) EOSINOPHILS RELATIVE PERCENT (BEAKER) (test 0 % ndad=985) BASOPHILS RELATIVE PERCENT (BEAKER) (test 0 % qsvz=527) NEUTROPHILS ABSOLUTE COUNT (BEAKER) (test 8.29 K/ L 1.78-5.38 pcps=505) LYMPHOCYTES ABSOLUTE COUNT (BEAKER) (test 0.56 K/ L 1.32-3.57 etol=341) MONOCYTES ABSOLUTE COUNT (BEAKER) (test 0.72 K/ L 0.30-0.82 mpqi=171) EOSINOPHILS ABSOLUTE COUNT (BEAKER) (test 0.00 K/ L 0.04-0.54 mnfz=675) BASOPHILS ABSOLUTE COUNT (BEAKER) (test 0.01 K/ L 0.01-0.08 kdfs=979) IMMATURE GRANULOCYTES-RELATIVE PERCENT (BEAKER) 0 % 0-1 (test vock=2761) POCT-GLUCOSE [id number] 02:25:00 Test Item Value Reference Range Comments POC-GLUCOSE METER (BEAKER) 187 mg/dL 70-110 TESTED AT [facility] [address] (test wyqb=5649) [place] [address] SODIUM NA-STAT [id number] 02:10:00 Test Item Value Reference Range Comments SODIUM (BEAKER) (test tmec=537) 141 meq/L 135-148 POTASSIUM-STAT [id number] 02:10:00 Test Item Value Reference Range Comments POTASSIUM (BEAKER) (test wzuc=326) 4.0 meq/L 3.6-5.5 BLOOD GAS, [id number] 02:10:00 Test Item Value Reference Range Comments PH ARTERIAL (BEAKER) (test nnku=742) 7.40 7.35-7.45 PCO2 ARTERIAL (BEAKER) (test aiow=478) 38 mmHg 35-45 PO2 ARTERIAL (BEAKER) (test pwwq=000) 90 mmHg 80-90 O2 SATURATION ARTERIAL (BEAKER) (test kyol=719) 97.1 % 96.0-97.0 HCO3 ARTERIAL (BEAKER) (test vbkk=342) 23 mmol/L 21-29 BASE EXCESS ARTERIAL (BEAKER) (test ohdk=982) -1.7 mmol/L -2.0-3.0 PATIENT TEMPERATURE (BEAKER) (test ljwh=7504) 36.6 C FIO2 (BEAKER) (test jhlo=3884) 100.0 % GLUCOSE-STAT [id number] 02:10:00 Test Item Value Reference Range Comments GLUCOSE RANDOM (BEAKER) (test nwrc=603) 167 mg/dL 70-110 HGB/HCT (H&H) - STAT [id number] 02:10:00 Test Item Value Reference Range Comments HEMOGLOBIN (BEAKER) (test kkoh=074) 9.1 g/dL 13.0-16.8 HEMATOCRIT (BEAKER) (test cdmi=561) 27.0 % 40.0-50.0 [id number] 00:10:00 Test Item Value Reference Range Comments FIBRINOGEN LEVEL (BEAKER) (test ronk=337) 295 mg/dl 225-434 [id number] 00:10:00 Test Item Value Reference Range Comments PARTIAL THROMBOPLASTIN TIME (BEAKER) (test 31.7 seconds 22.5-36.0 huuc=446) PROTHROMBIN [id number] 00:09:00 Test Item Value Reference Range Comments PROTIME (BEAKER) (test rpzv=346) 16.3 seconds 11.7-14.7 INR (BEAKER) (test szqh=448) 1.3 <=5.9 RECOMMENDED COUMADIN/WARFARIN INR THERAPY RANGESSTANDARD DOSE: 2.0 - 3.0 Includes: PROPHYLAXIS forvenous thrombosis, systemic embolization; TREATMENT for venous thrombosis and/or pulmonary embolus.HIGH RISK: Target INR is 2.5-3.5 for patients with mechanical heart valves.[id number] 00:05:00 Test Item Value Reference Range Comments MAGNESIUM (BEAKER) (test hfay=881) 2.1 mg/dL 1.6-2.6 BLOOD GAS, [id number] 00:00:00 Test Item Value Reference Range Comments PH ARTERIAL (BEAKER) (test tntu=973) 7.39 7.35-7.45 PCO2 ARTERIAL (BEAKER) (test faal=575) 39 mmHg 35-45 PO2 ARTERIAL (BEAKER) (test alur=107) 66 mmHg 80-90 O2 SATURATION ARTERIAL (BEAKER) (test dmyn=922) 93.6 % 96.0-97.0 HCO3 ARTERIAL (BEAKER) (test sfmo=357) 23 mmol/L 21-29 BASE EXCESS ARTERIAL (BEAKER) (test cgvv=492) -1.8 mmol/L -2.0-3.0 PATIENT TEMPERATURE (BEAKER) (test snro=2579) 36.4 C FIO2 (BEAKER) (test zllz=6740) 60.0 % GLUCOSE-STAT [id number] 00:00:00 Test Item Value Reference Range Comments GLUCOSE RANDOM (BEAKER) (test jsak=275) 167 mg/dL 70-110 HGB/HCT (H&H) - STAT [id number] 00:00:00 Test Item Value Reference Range Comments HEMOGLOBIN (BEAKER) (test jylk=366) 9.8 g/dL 13.0-16.8 HEMATOCRIT (BEAKER) (test mvmd=865) 29.0 % 40.0-50.0 CALCIUM, [id number] 00:00:00 Test Item Value Reference Range Comments CALCIUM IONIZED (BEAKER) (test jubr=799) 1.09 mmol/L 1.12-1.27 PH, BLOOD (BEAKER) (test bjaf=7540) 7.38 POCT-GLUCOSE [id number] 23:58:00 Test Item Value Reference Range Comments POC-GLUCOSE METER (BEAKER) 192 mg/dL 70-110 TESTED AT [facility] [address] [facility] (test iylh=9806) [facility] [address] [place] [id number] 23:58:00 Test Item Value Reference Range Comments PLATELET COUNT (BEAKER) (test goxn=735) 219 K/CU MM 150-450 POCT-GLUCOSE [id number] 23:58:00 Test Item Value Reference Range Comments POC-GLUCOSE METER (BEAKER) 194 mg/dL 70-110 TESTED AT [address] (test zvyj=3612) [facility] [address] SODIUM NA-STAT [id number] 23:57:00 Test Item Value Reference Range Comments SODIUM (BEAKER) (test ahcw=297) 139 meq/L 135-148 POTASSIUM-STAT [id number] 23:57:00 Test Item Value Reference Range Comments POTASSIUM (BEAKER) (test gsnf=740) 3.7 meq/L 3.6-5.5 RAD, CHEST, 1 VIEW, NON [id number] 21:33:00Reason for exam:->s/p sternotomyShould this be performed at the bedside?->YesFINAL REPORT Comparison exam: None No pneumothorax, focal pulmonary consolidation, or significant pleural effusion. The cardiac size is magnified by the portable technique. Normal mediastinal contours. Endotracheal tube 4.6 cm above the luis.Appropriately positioned intra-aortic balloon pump and pulmonary artery catheter. Two left thoracostomy tubes, one of which is paramedian in location. Signed: Eddy Hooperort Verified Date/Time: 05/09 21:33:28 Reading Location: [facility] C013X Ortho Consult Reading Room [id number] 20:46:00 Test Item Value Reference Range Comments FIBRINOGEN LEVEL (BEAKER) (test gfba=603) 283 mg/dl 225-434 CBC W/PLT COUNT & AUTO [id number] 20:34:00 Test Item Value Reference Range Comments WHITE BLOOD CELL COUNT (BEAKER) (test coug=643) 17.8 K/ L 3.5-10.5 RED BLOOD CELL COUNT (BEAKER) (test eixp=624) 3.67 M/ L 4.63-6.08 HEMOGLOBIN (BEAKER) (test sjmx=660) 10.3 GM/DL 13.7-17.5 HEMATOCRIT (BEAKER) (test xvld=258) 31.8 % 40.1-51.0 MEAN CORPUSCULAR VOLUME (BEAKER) (test icsn=025) 86.6 fL 79.0-92.2 MEAN CORPUSCULAR HEMOGLOBIN (BEAKER) (test 28.1 pg 25.7-32.2 nwga=768) MEAN CORPUSCULAR HEMOGLOBIN CONC (BEAKER) (test 32.4 GM/DL 32.3-36.5 ousc=748) RED CELL DISTRIBUTION WIDTH (BEAKER) (test 14.6 % 11.6-14.4 qcnc=879) PLATELET COUNT (BEAKER) (test hbbu=563) 247 K/CU MM 150-450 MEAN PLATELET VOLUME (BEAKER) (test oyzp=952) 11.0 fL 9.4-12.4 NUCLEATED RED BLOOD CELLS (BEAKER) (test 0 /100 WBC 0-0 bjrb=577) NEUTROPHILS RELATIVE PERCENT (BEAKER) (test 78 % qjfk=014) LYMPHOCYTES RELATIVE PERCENT (BEAKER) (test 9 % wuyo=548) MONOCYTES RELATIVE PERCENT (BEAKER) (test 11 % egdn=003) EOSINOPHILS RELATIVE PERCENT (BEAKER) (test 0 % bvli=232) BASOPHILS RELATIVE PERCENT (BEAKER) (test 0 % kcif=832) NEUTROPHILS ABSOLUTE COUNT (BEAKER) (test 13.97 K/ L 1.78-5.38 cvjy=374) LYMPHOCYTES ABSOLUTE COUNT (BEAKER) (test 1.63 K/ L 1.32-3.57 dqko=192) MONOCYTES ABSOLUTE COUNT (BEAKER) (test 1.98 K/ L 0.30-0.82 sujy=831) EOSINOPHILS ABSOLUTE COUNT (BEAKER) (test 0.06 K/ L 0.04-0.54 pihi=584) BASOPHILS ABSOLUTE COUNT (BEAKER) (test 0.02 K/ L 0.01-0.08 acij=485) IMMATURE GRANULOCYTES-RELATIVE PERCENT (BEAKER) 1 % 0-1 (test tylf=3422) [id number] 20:30:00 Test Item Value Reference Range Comments MAGNESIUM (BEAKER) (test zdol=580) 1.8 mg/dL 1.6-2.6 BASIC METABOLIC [id number] 20:30:00 Test Item Value Reference Range Comments SODIUM (BEAKER) (test 142 meq/L 136-145 lxfi=695) POTASSIUM (BEAKER) (test 4.0 meq/L 3.5-5.1 neik=087) CHLORIDE (BEAKER) (test 110 meq/L 98-107 vmpf=491) CO2 (BEAKER) (test 20 meq/L 22-29 xhtp=008) BLOOD UREA NITROGEN 10 mg/dL 7-21 (BEAKER) (test cgsj=316) CREATININE (BEAKER) (test 0.83 mg/dL 0.57-1.25 qete=921) GLUCOSE RANDOM (BEAKER) 189 mg/dL 70-105 (test geau=407) CALCIUM (BEAKER) (test 8.7 mg/dL 8.4-10.2 jcca=965) EGFR (BEAKER) (test 113 mL/min/1.73 sq m ESTIMATED GFR IS NOT tztc=9592) ACCURATE CREATININE CLEARANCE IN PREDICTING GLOMERULAR FILTRATION RATE. ESTIMATED GFR IS NOT APPLICABLE FOR DIALYSIS PATIENTS. Specimen slightly ictericLACTIC ACID, ARTERIAL, WHOLE [id number] 20:27:00 Test Item Value Reference Range Comments LACTATE BLOOD ARTERIAL (2) (BEAKER) (test 2.2 mmol/L 0.5-2.2 mzle=6694) Effective 11/30/2015: Units/Reference Range ChangeNew: 0.5-2.2 mmol/L Previous: 5 -20 mg/dLSpecimen slightly ictericPROTHROMBIN [id number] 20:21:00 Test Item Value Reference Range Comments PROTIME (BEAKER) (test nlye=574) 16.2 seconds 11.7-14.7 INR (BEAKER) (test brpv=833) 1.3 <=5.9 RECOMMENDED COUMADIN/WARFARIN INR THERAPY RANGESSTANDARD DOSE: 2.0 - 3.0 Includes: PROPHYLAXIS forvenous thrombosis, systemic embolization; TREATMENT for venous thrombosis and/or pulmonary embolus.HIGH RISK: Target INR is 2.5-3.5 for patients with mechanical heart valves.[id number] 20:21:00 Test Item Value Reference Range Comments PARTIAL THROMBOPLASTIN TIME (BEAKER) (test 31.8 seconds 22.5-36.0 mbhu=756) OXYGEN SATURATION, [id number] 20:15:00 Test Item Value Reference Range Comments O2 SATURATION (MEASURED) (BEAKER) (test jakf=0044) 73.1 % GLUCOSE-STAT [id number] 20:14:00 Test Item Value Reference Range Comments GLUCOSE RANDOM (BEAKER) (test zsse=998) 188 mg/dL 70-110 HGB/HCT (H&H) - STAT [id number] 20:14:00 Test Item Value Reference Range Comments HEMOGLOBIN (BEAKER) (test adio=620) 10.9 g/dL 13.0-16.8 HEMATOCRIT (BEAKER) (test ozqb=207) 32.0 % 40.0-50.0 BLOOD GAS, [id number] 20:14:00 Test Item Value Reference Range Comments PH ARTERIAL (BEAKER) (test xlvc=527) 7.37 7.35-7.45 PCO2 ARTERIAL (BEAKER) (test ozin=926) 38 mmHg 35-45 PO2 ARTERIAL (BEAKER) (test tcgb=206) 65 mmHg 80-90 O2 SATURATION ARTERIAL (BEAKER) (test rckx=419) 92.8 % 96.0-97.0 HCO3 ARTERIAL (BEAKER) (test kiel=439) 22 mmol/L 21-29 BASE EXCESS ARTERIAL (BEAKER) (test rxwr=865) -3.5 mmol/L -2.0-3.0 PATIENT TEMPERATURE (BEAKER) (test vbmq=1816) 36.4 C FIO2 (BEAKER) (test pyfh=3863) 60.0 % CALCIUM, [id number] 20:13:00 Test Item Value Reference Range Comments CALCIUM IONIZED (BEAKER) (test ocnm=007) 1.16 mmol/L 1.12-1.27 PH, BLOOD (BEAKER) (test nkgz=1011) 7.36 SODIUM NA-STAT [id number] 20:13:00 Test Item Value Reference Range Comments SODIUM (BEAKER) (test hxlg=357) 138 meq/L 135-148 POTASSIUM-STAT [id number] 20:13:00 Test Item Value Reference Range Comments POTASSIUM (BEAKER) (test kvgt=271) 3.8 meq/L 3.6-5.5 [id number] 19:03:00 Test Item Value Reference Range Comments ACTIVATED CLOTTING TIME 120 sec TESTED AT [place] [address] [address] (BEAKER) (test fpbu=722) [place] [address] [id number] 19:03:00 Test Item Value Reference Range Comments ACTIVATED CLOTTING TIME 466 sec TESTED AT [place] [address] [address] (BEAKER) (test xaex=662) [place] [address] [id number] 19:03:00 Test Item Value Reference Range Comments ACTIVATED CLOTTING TIME 422 sec TESTED AT [place] [address] [address] (BEAKER) (test sjpt=242) [place] [address] [id number] 19:03:00 Test Item Value Reference Range Comments ACTIVATED CLOTTING TIME 483 sec TESTED AT [place] [address] [address] (BEAKER) (test sffu=394) [place] [address] BLOOD GAS, [id number] 17:57:00 Test Item Value Reference Range Comments PH ARTERIAL (BEAKER) (test lkqn=521) 7.35 7.35-7.45 PCO2 ARTERIAL (BEAKER) (test qlmt=527) 42 mmHg 35-45 PO2 ARTERIAL (BEAKER) (test ncxb=486) 200 mmHg 80-90 O2 SATURATION ARTERIAL (BEAKER) (test syej=144) 99.3 % 96.0-97.0 HCO3 ARTERIAL (BEAKER) (test kngb=958) 23 mmol/L 21-29 BASE EXCESS ARTERIAL (BEAKER) (test tbtj=810) -2.9 mmol/L -2.0-3.0 PATIENT TEMPERATURE (BEAKER) (test vbwl=2680) 36.0 C FIO2 (BEAKER) (test xyqk=1420) 100.0 % GLUCOSE-STAT [id number] 17:57:00 Test Item Value Reference Range Comments GLUCOSE RANDOM (BEAKER) (test iozn=700) 139 mg/dL 70-110 HGB/HCT (H&H) - STAT [id number] 17:57:00 Test Item Value Reference Range Comments HEMOGLOBIN (BEAKER) (test aomd=798) 9.0 g/dL 13.0-16.8 HEMATOCRIT (BEAKER) (test atdv=609) 26.0 % 40.0-50.0 SODIUM NA-STAT [id number] 17:56:00 Test Item Value Reference Range Comments SODIUM (BEAKER) (test afpw=004) 136 meq/L 135-148 POTASSIUM-STAT [id number] 17:56:00 Test Item Value Reference Range Comments POTASSIUM (BEAKER) (test hnhc=206) 4.2 meq/L 3.6-5.5 THROMBOELASTOGRAPH ([id number])[id number] 17:20:00 Test Item Value Reference Range Comments TEG ACTIVATED CLOTTING TIME (BEAKER) (test 11.8 minutes 4.0-7.0 fxrg=7634) TEG FIBRINOGEN ACTIVITY (BEAKER) (test 73.6 degrees 61.0-73.0 uupn=3849) TEG PLT. AGGREGATION (BEAKER) (test upjg=6726) 66.1 MM 55.0-65.0 TGH ACTIVATED CLOTTING TIME (BEAKER) (test 11.9 minutes 4.0-7.0 lkzx=6649) TGH FIBRINOGEN ACTIVITY (BEAKER) (test 73.7 degrees 61.0-73.0 xgdv=4390) TGH PLT. AGGREGATION (BEAKER) (test ijgb=0637) 66.1 MM 55.0-65.0 [id number] 16:43:00 Test Item Value Reference Range Comments PARTIAL THROMBOPLASTIN TIME (BEAKER) (test 44.3 seconds 22.5-36.0 feyq=679) PROTHROMBIN [id number] 16:42:00 Test Item Value Reference Range Comments PROTIME (BEAKER) (test oaaq=522) 22.2 seconds 11.7-14.7 INR (BEAKER) (test wjgl=977) 1.9 <=5.9 RECOMMENDED COUMADIN/WARFARIN INR THERAPY RANGESSTANDARD DOSE: 2.0 - 3.0 Includes: PROPHYLAXIS forvenous thrombosis, systemic embolization; TREATMENT for venous thrombosis and/or pulmonary embolus.HIGH RISK: Target INR is 2.5-3.5 for patients with mechanical heart valves.[id number] 16:42:00 Test Item Value Reference Range Comments FIBRINOGEN LEVEL (BEAKER) (test rrvn=586) 252 mg/dl 225-434 PLATELET [id number] 16:35:00 Test Item Value Reference Range Comments PLATELET COUNT (BEAKER) (test oooq=743) 115 K/CU MM 150-450 BLOOD GAS, [id number] 16:13:00 Test Item Value Reference Range Comments PH ARTERIAL (BEAKER) (test vppq=508) 7.31 7.35-7.45 PCO2 ARTERIAL (BEAKER) (test lubf=591) 50 mmHg 35-45 PO2 ARTERIAL (BEAKER) (test bsqc=573) 279 mmHg 80-90 O2 SATURATION ARTERIAL (BEAKER) (test kpvf=496) 99.6 % 96.0-97.0 HCO3 ARTERIAL (BEAKER) (test cwpt=620) 25 mmol/L 21-29 BASE EXCESS ARTERIAL (BEAKER) (test ebob=696) -1.7 mmol/L -2.0-3.0 PATIENT TEMPERATURE (BEAKER) (test unmy=0051) 35.6 C FIO2 (BEAKER) (test mofe=7227) 100.0 % HGB/HCT (H&H) - STAT [id number] 16:13:00 Test Item Value Reference Range Comments HEMOGLOBIN (BEAKER) (test jbcd=316) 9.0 g/dL 13.0-16.8 HEMATOCRIT (BEAKER) (test pobb=139) 26.0 % 40.0-50.0 GLUCOSE-STAT [id number] 16:12:00 Test Item Value Reference Range Comments GLUCOSE RANDOM (BEAKER) (test vxia=389) 107 mg/dL 70-110 SODIUM NA-STAT [id number] 16:12:00 Test Item Value Reference Range Comments SODIUM (BEAKER) (test qxrl=709) 136 meq/L 135-148 POTASSIUM-STAT [id number] 16:12:00 Test Item Value Reference Range Comments POTASSIUM (BEAKER) (test xqad=029) 4.6 meq/L 3.6-5.5 GLUCOSE-STAT [id number] 15:50:00 Test Item Value Reference Range Comments GLUCOSE RANDOM (BEAKER) (test pghh=480) 103 mg/dL 70-110 SODIUM NA-STAT [id number] 15:50:00 Test Item Value Reference Range Comments SODIUM (BEAKER) (test qgfh=476) 137 meq/L 135-148 POTASSIUM-STAT [id number] 15:50:00 Test Item Value Reference Range Comments POTASSIUM (BEAKER) (test puec=354) 5.3 meq/L 3.6-5.5 BLOOD GAS, [id number] 15:50:00 Test Item Value Reference Range Comments PH ARTERIAL (BEAKER) (test ebsy=373) 7.34 7.35-7.45 PCO2 ARTERIAL (BEAKER) (test qyth=227) 50 mmHg 35-45 PO2 ARTERIAL (BEAKER) (test nrbl=054) 319 mmHg 80-90 O2 SATURATION ARTERIAL (BEAKER) (test jblj=196) 99.7 % 96.0-97.0 HCO3 ARTERIAL (BEAKER) (test fnrj=660) 27 mmol/L 21-29 BASE EXCESS ARTERIAL (BEAKER) (test tlnb=465) 0.1 mmol/L -2.0-3.0 PATIENT TEMPERATURE (BEAKER) (test eplt=5146) 35.1 C FIO2 (BEAKER) (test catr=1978) 70.0 % HGB/HCT (H&H) - STAT [id number] 15:50:00 Test Item Value Reference Range Comments HEMOGLOBIN (BEAKER) (test lhso=232) 9.2 g/dL 13.0-16.8 HEMATOCRIT (BEAKER) (test jzmj=025) 27.0 % 40.0-50.0 BLOOD GAS, [id number] 15:34:00 Test Item Value Reference Range Comments PH ARTERIAL (BEAKER) (test mjsy=576) 7.27 7.35-7.45 PCO2 ARTERIAL (BEAKER) (test bcjy=183) 53 mmHg 35-45 PO2 ARTERIAL (BEAKER) (test ipya=766) 310 mmHg 80-90 O2 SATURATION ARTERIAL (BEAKER) (test emkl=191) 99.6 % 96.0-97.0 HCO3 ARTERIAL (BEAKER) (test fgjm=267) 25 mmol/L 21-29 BASE EXCESS ARTERIAL (BEAKER) (test ggrj=201) -3.4 mmol/L -2.0-3.0 PATIENT TEMPERATURE (BEAKER) (test kkcu=2699) 33.5 C FIO2 (BEAKER) (test jlgx=0276) 70.0 % SODIUM NA-STAT [id number] 15:34:00 Test Item Value Reference Range Comments SODIUM (BEAKER) (test vfht=853) 133 meq/L 135-148 HGB/HCT (H&H) - STAT [id number] 15:34:00 Test Item Value Reference Range Comments HEMOGLOBIN (BEAKER) (test lghp=823) 8.2 g/dL 13.0-16.8 HEMATOCRIT (BEAKER) (test xdlr=639) 24.0 % 40.0-50.0 GLUCOSE-STAT [id number] 15:33:00 Test Item Value Reference Range Comments GLUCOSE RANDOM (BEAKER) (test boya=183) 104 mg/dL 70-110 POTASSIUM-STAT [id number] 15:33:00 Test Item Value Reference Range Comments POTASSIUM (BEAKER) (test crwg=761) 4.5 meq/L 3.6-5.5 BLOOD GAS, [id number] 15:28:00 Test Item Value Reference Range Comments PH VENOUS (BEAKER) (test kgrc=453) 7.25 7.32-7.42 PCO2 VENOUS (BEAKER) (test dtkg=550) 58 mmHg 41-51 PO2 VENOUS (BEAKER) (test lzwy=523) 48 mmHg 25-40 O2 SATURATION VENOUS (BEAKER) (test bwiu=423) 85.1 % 40.0-70.0 HCO3 VENOUS (BEAKER) (test dvxe=280) 26 mmol/L 21-29 BASE EXCESS VENOUS (BEAKER) (test dztu=035) -2.5 mmol/L -2.0-3.0 PATIENT TEMPERATURE (BEAKER) (test ckfv=7281) 33.5 C FIO2 (BEAKER) (test stap=8131) 70.0 % PLATELET AGGREGATION: DRUG [id number] 15:27:00 Test Item Value Reference Range Comments STRONG ADP RESULT(BEAKER) (test 68 % 70-94 geoz=4093) WEAK ADP RESULT(BEAKER) (test 55 % 60-91 oteh=2601) ARACHADONIC ACID RESULT(BEAKER) 77 % 63-89 (test batu=1913) PLATELET AGG DRUG INTERPRETATION Normal arachidonic acid and (BEAKER) (test oepa=6525) ADP results. No [id number]-pgfbu or aspirin-like drug effect. [id number] (BEAKER) Conchis Rogel MD (test uunk=5632) (electronic signature) PLATELET COUNT AGG (BEAKER) 276 K/CU MM 150-430 (test onlx=2348) Platelet aggregation results may be falsely low with platelet counts<100,000/ CU MM.GLUCOSE-STAT [id number] 14:48:00 Test Item Value Reference Range Comments GLUCOSE RANDOM (BEAKER) (test lzdu=188) 98 mg/dL 70-110 SODIUM NA-STAT [id number] 14:48:00 Test Item Value Reference Range Comments SODIUM (BEAKER) (test ybsk=318) 139 meq/L 135-148 POTASSIUM-STAT [id number] 14:48:00 Test Item Value Reference Range Comments POTASSIUM (BEAKER) (test ntmm=205) 4.0 meq/L 3.6-5.5 BLOOD GAS, [id number] 14:48:00 Test Item Value Reference Range Comments PH ARTERIAL (BEAKER) (test iseo=603) 7.37 7.35-7.45 PCO2 ARTERIAL (BEAKER) (test wwtg=900) 46 mmHg 35-45 PO2 ARTERIAL (BEAKER) (test ztkv=001) 311 mmHg 80-90 O2 SATURATION ARTERIAL (BEAKER) (test vbfe=911) 99.7 % 96.0-97.0 HCO3 ARTERIAL (BEAKER) (test mfyh=187) 27 mmol/L 21-29 BASE EXCESS ARTERIAL (BEAKER) (test jtav=604) 0.6 mmol/L -2.0-3.0 PATIENT TEMPERATURE (BEAKER) (test uqxa=9852) 35.8 C FIO2 (BEAKER) (test ibtb=3723) 100.0 % HGB/HCT (H&H) - STAT [id number] 14:48:00 Test Item Value Reference Range Comments HEMOGLOBIN (BEAKER) (test xhcc=076) 13.0 g/dL 13.0-16.8 HEMATOCRIT (BEAKER) (test ouod=996) 38.0 % 40.0-50.0 CALCIUM, [id number] 14:48:00 Test Item Value Reference Range Comments CALCIUM IONIZED (BEAKER) (test vyyd=213) 1.09 mmol/L 1.12-1.27 PH, BLOOD (BEAKER) (test wkqq=5204) 7.36 COMPREHENSIVE METABOLIC [id number] 12:47:00 Test Item Value Reference Range Comments TOTAL PROTEIN (BEAKER) 7.4 gm/dL 6.0-8.3 (test pzgg=823) ALBUMIN (BEAKER) (test 3.8 g/dL 3.5-5.0 jsvz=1606) ALKALINE PHOSPHATASE 46 U/L 40-150 (BEAKER) (test xnnm=307) BILIRUBIN TOTAL (BEAKER) 0.7 mg/dL 0.2-1.2 (test gxjx=466) SODIUM (BEAKER) (test 138 meq/L 136-145 hqkw=439) POTASSIUM (BEAKER) (test 4.1 meq/L 3.5-5.1 eles=410) CHLORIDE (BEAKER) (test 105 meq/L 98-107 hopm=892) CO2 (BEAKER) (test 23 meq/L 22-29 hiku=864) BLOOD UREA NITROGEN 9 mg/dL 7-21 (BEAKER) (test thax=292) CREATININE (BEAKER) (test 0.80 mg/dL 0.57-1.25 ikkt=486) GLUCOSE RANDOM (BEAKER) 110 mg/dL 70-105 (test xfji=647) CALCIUM (BEAKER) (test 9.2 mg/dL 8.4-10.2 hmfs=197) AST (SGOT) (BEAKER) (test 14 U/L 5-34 kabl=721) ALT (SGPT) (BEAKER) (test 16 U/L 6-55 mtht=475) EGFR (BEAKER) (test 118 mL/min/1.73 sq ESTIMATED GFR IS NOT swyh=5926) m ACCURATE CREATININE CLEARANCE IN PREDICTING GLOMERULAR FILTRATION RATE. ESTIMATED GFR IS NOT APPLICABLE FOR DIALYSIS PATIENTS. PROTHROMBIN [id number] 12:31:00 Test Item Value Reference Range Comments PROTIME (BEAKER) (test spvu=264) 14.8 seconds 11.7-14.7 INR (BEAKER) (test fhhb=572) 1.2 <=5.9 RECOMMENDED COUMADIN/WARFARIN INR THERAPY RANGESSTANDARD DOSE: 2.0 - 3.0 Includes: PROPHYLAXIS forvenous thrombosis, systemic embolization; TREATMENT for venous thrombosis and/or pulmonary embolus.HIGH RISK: Target INR is 2.5-3.5 for patients with mechanical heart valves.CBC W/PLT COUNT & AUTO [id number] 12:20:00 Test Item Value Reference Range Comments WHITE BLOOD CELL COUNT (BEAKER) (test ascz=276) 5.3 K/ L 3.5-10.5 RED BLOOD CELL COUNT (BEAKER) (test xuve=910) 4.89 M/ L 4.63-6.08 HEMOGLOBIN (BEAKER) (test crap=886) 13.2 GM/DL 13.7-17.5 HEMATOCRIT (BEAKER) (test ggvh=440) 41.6 % 40.1-51.0 MEAN CORPUSCULAR VOLUME (BEAKER) (test cxfr=264) 85.1 fL 79.0-92.2 MEAN CORPUSCULAR HEMOGLOBIN (BEAKER) (test 27.0 pg 25.7-32.2 tijx=836) MEAN CORPUSCULAR HEMOGLOBIN CONC (BEAKER) (test 31.7 GM/DL 32.3-36.5 ijwm=487) RED CELL DISTRIBUTION WIDTH (BEAKER) (test 15.4 % 11.6-14.4 ytwk=235) PLATELET COUNT (BEAKER) (test tgtl=478) 290 K/CU MM 150-450 MEAN PLATELET VOLUME (BEAKER) (test zmmn=614) 11.4 fL 9.4-12.4 NUCLEATED RED BLOOD CELLS (BEAKER) (test 0 /100 WBC 0-0 rmpt=091) NEUTROPHILS RELATIVE PERCENT (BEAKER) (test 53 % wnsp=216) LYMPHOCYTES RELATIVE PERCENT (BEAKER) (test 34 % iyls=915) MONOCYTES RELATIVE PERCENT (BEAKER) (test 10 % ygac=309) EOSINOPHILS RELATIVE PERCENT (BEAKER) (test 3 % yaci=820) BASOPHILS RELATIVE PERCENT (BEAKER) (test 0 % inrf=352) NEUTROPHILS ABSOLUTE COUNT (BEAKER) (test 2.82 K/ L 1.78-5.38 qnwb=313) LYMPHOCYTES ABSOLUTE COUNT (BEAKER) (test 1.80 K/ L 1.32-3.57 ivex=760) MONOCYTES ABSOLUTE COUNT (BEAKER) (test 0.51 K/ L 0.30-0.82 ulmw=008) EOSINOPHILS ABSOLUTE COUNT (BEAKER) (test 0.16 K/ L 0.04-0.54 ivle=871) BASOPHILS ABSOLUTE COUNT (BEAKER) (test 0.02 K/ L 0.01-0.08 ipyu=666) IMMATURE GRANULOCYTES-RELATIVE PERCENT (BEAKER) 0 % 0-1 (test nsbq=2095)
[2019-02-05] MEDS ORDERED: NA CHLORIDE 0.9% 500 ML ONE (07:59)
[2019-02-05] MEDS ORDERED: HEPA 1000U/500MLS 2,000 UNIT/1,000 ML BAG IV ONE (08:40)
[2019-02-05] MEDS ORDERED: FENTANYL CITR 100 MCG/2 ML ONE (08:40)
[2019-02-05] MEDS ORDERED: MIDAZOLAM HCL 2 MG/2 ML INJ ONE ×2 (08:40→08:57)
[2019-02-05] MEDS ORDERED: HEPARIN 5000 UNIT/ML 1 ML VIAL ONE (09:28)
[2019-02-05] MEDS ORDERED: PRASUGREL (EFFIENT) 10 MG TAB ONE (10:11)
[2019-02-05] MEDS ORDERED: LIDOCAINE 1.5% W/EPI AMP 5 ML ONE (10:20)
[2019-02-05 10:39] VITALS: TEMP 97
[2019-02-05 13:51] VITALS: O2SAT 97
[2019-02-05 13:52] VITALS: BP 107/58
--- NOTE | 2019-02-05 14:01 | OP ---
Date of Procedure: 02/05/2019 Surgeon: Von Barnes MD Cigar Packer And Picker: Nilsa Davenport. Procedure: Abdominal angiogram with runoff. Angioplasty of the mid SFA and the proximal popliteal o n the left side. Indication: Peripheral arterial disease and claudication. History Of Present Illness: Mr. Mauricio is 63, has had diabetes, hypertension, dyslipidemia, coronary artery bypass surgery, classic claudication, abnormal arterial Doppler admitted today as an outpatien t. Prepped and draped in the routine sterile fashion. A 6-Georgian sheath introduced in the right com mon femoral artery successfully. Abdominal angiogram using a pigtail reveals some moderate plaquing in the left common iliac as well as the right SFA and below the knees. He had a 99% left popliteal a rtery and 70% mid left SFA. The mid left SFA was dilated with 4 x 29 mm Maunie balloon. The poplite al artery was dilated with a 6 x 39 Maunie balloon. There was a 40% residual distally in the poplite al and the SFA. There was from 70% to 20% residual. I attempted to pass a stent via right groin chirag sweet, but we were unable to advance it to the lesion in the popliteal secondary to tortuosity and ca lcification. There were no complications. Blood Loss: 5 cc. Postoperative Diagnosis: Peripheral arterial disease, status post successful angioplasty of the SFA and the popliteal. Anesthesia: Total conscious sedation was 45 minutes. Plan: Plan is for him to continue his medical therapy. He will hold the metformin for 48 hours. He will receive 60 mg of Effient. Continue aspirin at home and Plavix. PRAKASH/BLAISE Voice ID: [id number] Report ID: [id number]
== END 2019-02-05 13:45 | disposition home or self-care (01) ==
LOC: OR 07:32 → CCL 13:45
DX: I70.212 Atherosclerosis of native arteries of extremities with intermittent claudication, left leg (principal); I25.10 Atherosclerotic heart disease of native coronary artery without angina pectoris; I65.23 Occlusion and stenosis of bilateral carotid arteries; I10 Essential (primary) hypertension; E78.5 Hyperlipidemia, unspecified; E78.6 Lipoprotein deficiency; E11.9 Type 2 diabetes mellitus without complications; Z95.1 Presence of aortocoronary bypass graft; Z95.5 Presence of coronary angioplasty implant and graft; Z87.891 Personal history of nicotine dependence; Z82.49 Family history of ischemic heart disease and other diseases of the circulatory system
CPT/HCPCS: 85025; 80048; 36415; 85610; 82962 ×2; 85730; 71046; 75630; 37224; C1893; C1760; C1887; C1769; C1725; J1644; J2250 ×2; J3010; J2001

== ENCOUNTER 2023-04-19 11:30 | Day surgery (SDC) | payer OTHER ==
[2023-04-11 11:24] LABS: Absolute Lymphocytes (CBC) 1.5 K/uL (0.7-4.9); Hematocrit 41.6 % (39.6-49.0); Lymphocytes % 30.8 % (15.3-44.8); MCV 84.3 fL (80-100); MPV 10.5 fL (7.6-11.3); Platelets 193 thou/uL (152-406); RBC Red Blood Cell Count 4.93 M/uL (4.33-5.43)
[2023-04-11 11:28] LABS: Protime INR 1.08
--- NOTE | 2023-04-11 12:13 | RAD REPORT ---
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 Hypertension COMPARISON: Chest Pa And Lat (2 Views) dated 02/03/2019; Chest Single View dated 07/03/2017; Chest Pa A nd Lat (2 Views) dated 06/26/2017; CHEST SINGLE VIEW dated 02/18/2009 TECHNIQUE: PA and lateral views of the chest were obtained. FINDINGS: The lungs are clear. Heart size is normal and central vasculature is within normal limits. No pleural effusion or pneumothorax seen. No acute bony finding noted. Sequelae of prior CABG. IMPRESSION: No acute cardiopulmonary process.
--- NOTE | 2023-04-11 13:00 | EKG ---
Test Date: 2023-04-11 Test Time: 11:04:47 Pig Machine Operator: REVA MEASUREMENT RESULTS: Intervals: Rate: 83 MD: 322 QRSD: 94 QT: 356 QTc: 418 [place]: P: 72 MD: 322 QRS: 37 T: -46 INTERPRETIVE STATEMENTS: Sinus rhythm with 1st degree AV block with frequent premature ventricular complexes Right atrial enlargement Nonspecific T wave abnormality Abnormal ECG Compared to ECG 05/07/2017 13:56:33 Ventricular premature complex(es) now present T-wave abnormality now present Myocardial infarct finding no longer present Electronically Signed On 04-11-23 12:59:59 CDT by Jayjay Parsons
[2023-04-19] MEDS ORDERED: HEPA 1000U/500MLS 2,000 UNIT/1,000 ML BAG IV ONE (12:47)
[2023-04-19] MEDS ORDERED: LIDOCAINE 1% 20 ML MDV ONE (12:47)
[2023-04-19] MEDS ORDERED: FENTANYL CITR 100 MCG/2 ML ONE (12:58)
[2023-04-19] MEDS ORDERED: MIDAZOLAM HCL 2 MG/2 ML INJ ONE (12:58)
[2023-04-19] MEDS ORDERED: NITROGLYCERIN/D5W 25 MG/250 ML BTL IV ONE (12:59)
[2023-04-19] MEDS ORDERED: HEPARIN 10,000 UNIT/10 ML VIAL IV ONE (12:59)
[2023-04-19] MEDS ORDERED: NA CHLORIDE 0.9% 500 ML ONE (14:04)
[2023-04-19 16:05] VITALS: BP 145/82; O2SAT 98
--- NOTE | 2023-04-19 18:54 | OP ---
Date of Procedure: 04/19/2023 Surgeon: LORETTA CASTANEDA Procedure Performed: Selective coronary angiogram with bypass graft study. Indication: Chest pain with abnormal stress test. Access: Right femoral artery 6-Tuvaluan closed with the StarClose. Complications: None. Bleeding: Less than 20 mL. Anesthesia: Total sedation time was 30 minutes. Description Of Procedure: After risks, benefits, alternatives were explained, patient agreed to proc edure and signed informal consent. Patient was brought into the cardiac catheterization laboratory, prepped and draped in the usual sterile fashion. Then, I accessed right femoral artery using micropu ncture kit, fluoroscopy, ultrasound guidance, and placed 6-Tuvaluan Mont[place] sheath and took 6-Tuvaluan J L4 catheter into the aortic root, engaged the left main, took standard views and then exchanged for 6 -Tuvaluan JR4 catheter, engaged the RCA, SVG to OM and PACHECO to LAD, took standard views and the cathete r was pushed over the wire into the LV, measured the LVEDP. Pullback did not record any gradient and then I removed the catheter and the sheath, and placed a StarClose for closure with good hemostasis. Findings: 1.Left main; distal 70%. 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 3.Left circumflex; proximal segment appears to be normal, OM is a large branch with 80% stenosis and then after the takeoff of the OM, the circ has 90% stenosis. 4.RCA; large and dominant with proximal 80% stenosis. Mid in-stent restenosis is 80%. Distal in-st ent restenosis is 90% and then the PDA diffuse 50% stenosis. Graft Study: 1.Patent SVG graft to OM. However, it is with significant luminal irregularities and it is very sma ll. 2.Patent PACHECO to LAD. 3.Elevated LVEDP at 22 mmHg. Conclusion: Severe ak chin coronary artery disease, multivessel with patent SVG to OM and PACHECO to LAD . Plan: To do a PCI with shockwave lithotripsy of the RCA at [place] in 4 weeks. SR/MODL Voice ID: [id number] Report ID: [id number]
== END 2023-04-19 16:28 | disposition home or self-care (01) ==
LOC: PRE 11:30
PROVIDERS: ATTEND Internal Medicine
DX: I25.10 Atherosclerotic heart disease of native coronary artery without angina pectoris (principal); I25.82 Chronic total occlusion of coronary artery; T82.855A Stenosis of coronary artery stent, initial encounter; I70.223 Atherosclerosis of native arteries of extremities with rest pain, bilateral legs; I65.23 Occlusion and stenosis of bilateral carotid arteries; I10 Essential (primary) hypertension; E78.2 Mixed hyperlipidemia; E11.9 Type 2 diabetes mellitus without complications; Z87.891 Personal history of nicotine dependence; Z79.82 Long term (current) use of aspirin; Z79.4 Long term (current) use of insulin; Z79.84 Long term (current) use of oral hypoglycemic drugs; Z79.899 Other long term (current) drug therapy; Z88.8 Allergy status to other drugs, medicaments and biological substances; Z82.49 Family history of ischemic heart disease and other diseases of the circulatory system
CPT/HCPCS: 93005; 85025; 80048; 36415; 85610; 82947; 85730; 71046; 93458; 76937; C1893; Q9967; J2001; J2250; J3010; J7040; 93459

== ENCOUNTER 2024-06-12 11:06 | Day surgery (SDC) | payer OTHER ==
[2024-06-11 14:37] LABS: Absolute Eosinophils 0.1 K/uL (0-0.5); Absolute Lymphocytes (CBC) 1.3 K/uL (0.7-4.9); Absolute Monocytes 0.5 K/uL (0.1-1.3); Absolute Neutrophil 3.8 K/uL (1.8-8.0); Basophils % 0.7 % (0-1.3); Eosinophils % 2.4 % (0-4.4); Hemoglobin 13.8 g/dL (13.6-17.9); Lymphocytes % 22.4 % (15.3-44.8); MCH 27.8 pg (27.0-35.0); MCHC 32.8 g/dL (32.0-36.0); MCV 84.9 fL (80-100); MPV 10.2 fL (7.6-11.3); Monocytes % 9.1 % (3.3-12.3); Neutrophils % 65.4 % (41.7-73.7); Nucleated Red Blood Cells % 0.1 % (0-0); Platelets 188 thou/uL (152-406); RBC Red Blood Cell Count 4.95 M/uL (4.33-5.43); Red Cell Distribution Width 15.7 % (12.1-15.2)
[2024-06-11 14:42] LABS: PT Prothrombin Time 11.9 SECONDS (9.4-12.5); PTT, Activated Partial Thromb 31.6 SECONDS (24.3-36.9); Protime INR 1.06
[2024-06-11 14:49] LABS: Anion Gap 8.9 mEq/L (5.0-15.0); Potassium 3.9 mEq/L (3.5-5.1)
--- NOTE | 2024-06-11 16:04 | RAD REPORT ---
EXAMINATION: TWO VIEW CHEST XR CLINICAL INDICATION: Male, 69 years old. [facility] Pre-op pending carotid angiogram/abdominal angiogr. Hypertension. History of open heart surgery TECHNIQUE: 2 view radiographs of the chest were performed. COMPARISON: 04/11/2023 FINDINGS: The lungs are well inflated and clear. No pneumothorax or sizable effusion. The heart is normal in si ze. Mediastinal contours are unchanged. IMPRESSION: No acute or significant abnormalities.
[2024-06-12] MEDS ORDERED: NA CHLORIDE 0.9% 500 ML ONE (11:07)
[2024-06-12] MEDS ORDERED: HEPA 1000U/500MLS 2,000 UNIT/1,000 ML BAG IV ONE (11:29)
[2024-06-12] MEDS ORDERED: NITROGLYCERIN/D5W 50 MG/250 ML BTL IV ONE (11:29)
[2024-06-12] MEDS ORDERED: MIDAZOLAM HCL 2 MG/2 ML INJ ONE (11:29)
[2024-06-12] MEDS ORDERED: LIDOCAINE 1% 20 ML MDV ONE (11:30)
[2024-06-12] MEDS ORDERED: FENTANYL CITR 100 MCG/2 ML ONE (11:30)
[2024-06-12] MEDS ORDERED: ATROPINE SULF 1 MG/10 ML SYR IV ONE (11:30)
[2024-06-12 13:56] VITALS: O2SAT 98
[2024-06-12 14:32] VITALS: BP 150/91
--- NOTE | 2024-06-12 22:48 | OP ---
Date of Procedure: 06/12/2024 Surgeon: LORETTA CASTANEDA Procedures Performed: 1.Selective bilateral carotid angiogram. 2.Peripheral angiogram with runoff. Indications: 1.Carotid stenosis. 2.Peripheral vascular disease with claudication. Access: Left common femoral artery 5-Somali, closed with Mynx closure device. Complications: None. Bleeding: Less than 50 mL. Anesthesia: Total sedation time was 1 hour, used fentanyl and Versed. Description Of Procedure: After risks, benefits, and alternatives were explained, the patient agreed to procedure and signed informed consent. The [facility], prepped and draped in usual sterile fashion. Then, I accessed left common femoral artery usi ng micropuncture kit, ultrasound guidance, fluoroscopy, placed a 5-Somali Wann sheath and took 5- Somali 3DRC catheter into the aortic root, engaged the right common carotid, took standard views, and then the left common carotid, took standard views and then exchanged for a 5-Somali straight pigtail catheter and performed aortogram with runoff and then removed the catheter and the sheath, and used Mynx closure device for closure with good hemostasis. Findings: Carotid angiogram: 1.The right common carotid is normal and the right internal carotid has 60% stenosis proximally. 2.The left common carotid is normal. Left internal carotid has 30% stenosis and external carotid ap pears to be normal. Peripheral angiogram: 1.Distal aorta is patent. 2.Right lower extremity, right common iliac, external iliac has diffuse 30% to 40% stenosis and the common femoral on the right has 50% stenosis. Profunda is patent and the SFA has proximal 70% and th en mid to distal multiple lesions ranging between 90% and 99%. The flow is very sluggish below the k nee and could not see very well. 3.The left lower extremity showed 30% stenosis in the left common iliac and there is 90% stenosis in the left external iliac and 60% stenosis in the left common femoral artery. Profunda is patent and the SFA has proximal 60% to 70% and then mid to distal diffuse 90% to 95% stenosis, very sluggish goyo w below the knee, could not see very well. Conclusions: 1.Moderate carotid stenosis. 2.Severe peripheral vascular disease. Recommendation: Intervention on the both lower extremities at [place] with atherectomy. SR/MODL Voice ID: [id number] Report ID: [id number]
--- NOTE | 2024-06-15 17:33 | EKG ---
Test Date: 2024-06-11 Test Time: 15:17:35 Home Health Speech Therapist: BAMBI MEASUREMENT RESULTS: Intervals: Rate: 87 WV: 354 QRSD: 100 QT: 468 QTc: 563 [place]: P: 75 WV: 354 QRS: 60 T: 75 INTERPRETIVE STATEMENTS: Sinus rhythm with 1st degree AV block Right atrial enlargement Prolonged QT Abnormal ECG Compared to ECG 04/11/2023 11:04:47 Prolonged QT interval now present Ventricular premature complex(es) no longer present T-wave abnormality no longer present Electronically Signed On 06-15-24 17:23:50 PLUMBER PIPE FITTING by aJyjay Parsons
== END 2024-06-12 14:33 | disposition home or self-care (01) ==
LOC: PRE 11:06 → CCL 14:33
PROVIDERS: ATTEND Internal Medicine
DX: I70.223 Atherosclerosis of native arteries of extremities with rest pain, bilateral legs (principal); I65.23 Occlusion and stenosis of bilateral carotid arteries; I25.10 Atherosclerotic heart disease of native coronary artery without angina pectoris; I10 Essential (primary) hypertension; E11.9 Type 2 diabetes mellitus without complications; E78.5 Hyperlipidemia, unspecified; Z95.1 Presence of aortocoronary bypass graft; Z87.891 Personal history of nicotine dependence; Z79.02 Long term (current) use of antithrombotics/antiplatelets; Z79.82 Long term (current) use of aspirin; Z79.84 Long term (current) use of oral hypoglycemic drugs; Z79.899 Other long term (current) drug therapy; Z88.8 Allergy status to other drugs, medicaments and biological substances; Z82.49 Family history of ischemic heart disease and other diseases of the circulatory system
CPT/HCPCS: 93005; 85025; 80048; 36415; 85610; 82947; 85730; 71046; 75716; 75625; 36222; 76937; C1893; J2003; J2250; J3010; J7040; C1760; 36200; 36245; 75630; 99152; 99153; J0461